=== PATIENT | female | born 1950 | race Caucasian/White ===

== ENCOUNTER → 2016-08-10 | Outpatient (CLI) | payer MEDICARE ==
[~2016-08-10] MED LIST: ASPIRIN81 M1 PO; BACTRIM DS TABL1 TA2 PO; BAYER CHEWABLE81 MG PO; CIPRO PO; CITALOPRAM HBR40 M1 PO; COREG12.5 MG PO; COREG6.25 MG PO; COZAAR25 MG PO; DIOVAN80 M1 PO; GLIPIZIDE10 MG PO; HYDRALAZINE HCL25 MG PO; IMDUR-ER30 M1 PO; IMDUR-ER30 M2 PO; IMDUR-ER60 MG PO; K-DUR20 ME1 PO; KEFLEX500 M1 PO; LASIX PO; LIPITOR20 MG PO; LORTAB 5-325 M1 EACH PO; METFORMIN HCL500 M1 PO; METFORMIN PO; MYCOLOG II CREA15 GM TOP; NITROFURANTOIN100 M3 PO; OMEPRAZOLE20 M2 PO; PAROXETINE HCL20 M1 PO; PERCOCET 5-3251 TAB PO; POTASSIUM CHLO10 ME1 PO; SILVADENE TOP; ST. JOSEPH ASPI81 M2 PO; TYLENOL #3 PO; VICODIN 5/1 TAB 5/50 PO; XARELTO10 MG PO
--- NOTE | ~2016-08-10 | MY11 ---
[facility] A Service [facility] RADIOLOGY TEXT RESULTS PATIENT: ANDREW MONTOYA LOCATION: [facility] : 48 UNIT #: [id number] AGE: [address]: Pavel Anthony MD SEX: F ORDER DR: [id number] [address] [address] [id number] O MR#: [id number] Acc #: [id number] NAME: ANDREW MONTOYA : 1950 SEX: F STUDY DATE/TIME: 08/10/2016 8:46 UNIT: [facility] ROOM: STUDY DESCRIPTION: MY Mammogram Screening Dig Jason Attending Physician: Pavel Anthony M.D. Referring Physician: Pavel Anthony M.D. Ordering Physician: Pavel Anthony M.D. Primary Care Physician: Pavel Anthony M.D. MEDICAL IMAGING REPORT This report is preliminary unless electronic signature is present. EXAM Bilateral digital screening mammogram with CAD HISTORY Routine screening. No current complaints. No family history of breast cancer. COMPARISON 08/20/2015, 08/07/2015, 06/14/2015 FINDINGS MLO and CC digital views of each breast were obtained and reviewed with an FDA-approved CAD device. Right sided pacemaker is present. There are scattered fibroglandular densities present. The multiple calcifications within the right axilla are stable from the prior study. They are confined to about a 1.0 cm area and only seen on the MLO view. They are shown to be intradermal on the prior workup. IMPRESSION No change. No evidence of malignancy. Patients over the age of 40 are entered into a reminder system with target due date for the next mammogram. A result letter will also be sent to the patient. BIRADS: 2 Benign Finding Dictated by... Boris Izaguirre M.D. THIS IS AN ELECTRONICALLY VERIFIED REPORT Boris Izaguirre M.D. at 08/11/2016 7:13 AM [facility] A Service of [facility] RADIOLOGY TEXT RESULTS PATIENT: ANDREW MONTOYA LOCATION: [facility] #: [id number] : 46 UNIT #: [id number] AGE: [address]: Pavel Anthony MD SEX: F ORDER DR: JAMIA/marisela TD: 08/10/2016 17:59 JOB #: [id number] MEDICAL IMAGING REPORT
== END | disposition home or self-care (01) ==
LOC: SMAM 08:15
DX: Z12.31 Encounter for screening mammogram for malignant neoplasm of breast (principal)
CPT/HCPCS: G0202

== ENCOUNTER 2016-10-11 13:34 | Inpatient (IN) | payer MEDICARE, OTHER ==
--- NOTE | ~2016-10-11 | CR151 ---
[facility] A Service of [facility] RADIOLOGY TEXT RESULTS PATIENT: ANDREW MONTOYA LOCATION: [place] [address]- : 46 UNIT #: [id number] AGE: [address]: Laverne Desir MD SEX: F ORDER DR: [id number] [facility] [address] [facility]. [place], [place] [address] [id number] I MR#: [id number] Acc #: [id number] NAME: ANDREW MONTOYA : 1950 SEX: F STUDY DATE/TIME: 10/12/2016 17:35 UNIT: [facility] ROOM: [facility] STUDY DESCRIPTION: CR Hip Min 2 Views Rt Attending Physician: Laverne Desir M.D. Ordering Physician: Ariel Moses M.D. Primary Care Physician: Pavel Anthony M.D. MEDICAL IMAGING REPORT This report is preliminary unless electronic signature is present EXAM Right hip intraoperative spot films 8 views HISTORY Right hip internal fixation. FINDINGS 8 fluoroscopic intraoperative spot films of the right hip demonstrate sequential placement of locking intramedullary landry and compression screw fixation across intertrochanteric fracture of the right hip. The fixation hardware appears in satisfactory position and the hip alignment appears satisfactory although bone detail is limited. Dictated by... Garrett Kidd M.D. THIS IS AN ELECTRONICALLY VERIFIED REPORT Garrett Kidd M.D. at 10/13/2016 5:14 PM DFL/rnr TD: 10/13/2016 01:11 JOB #: [id number] MEDICAL IMAGING REPORT Page 1 of 1 COPY
--- NOTE | ~2016-10-11 | EKG ---
PATIENT: ANDREW MONTOYA UNIT #: [id number] Ventricular Rate: 59 BPM Atrial Rate: 59 BPM P-R Interval: 150 ms QRS Duration: 84 ms Q-T Interval: 468 ms QTC Calculation(Bezet): 463 ms P [place]: 35 degrees Calculated R [place]: 2 degrees Calculated T [place]: 154 degrees Diagnosis Line: Sinus bradycardia with occasional Premature Diagnosis Line: ventricular complexes Diagnosis Line: Moderate voltage criteria for LVH, may be normal Diagnosis Line: variant Diagnosis Line: Marked ST abnormality, possible lateral Diagnosis Line: subendocardial injury Diagnosis Line: Abnormal ECG Diagnosis Line: When compared with ECG of 11-OCT-2016 17:00, Diagnosis Line: (unconfirmed) Diagnosis Line: Premature supraventricular complexes are no longer Diagnosis Line: Present Diagnosis Line: Confirmed by STONE TERRY MD ([id number]) on Diagnosis Line: 10/12/2016 11:28:58 PM INTERPRETING MD: SAE
--- NOTE | ~2016-10-11 | HP ---
Unit #: [id number] #: [id number] Patient: ANDREW MONTOYA [id number] [address] [id number] MR#: [id number] NAME: ANDREW MONTOYA ROOM: Age: 66 Sex: F Admission Date: 10/11/2016 : 1950 Attending Physician: Master Quezada M.D. Primary Care Physician: Pavel Anthony M.D. HISTORY AND PHYSICAL CHIEF COMPLAINT Fall, right hip pain. HISTORY OF PRESENT ILLNESS The patient is a 66-year-old female with past medical history of hypertension, hyperlipidemia, coronary artery disease, possibly CHF, uterine cancer, depression, COPD, diabetes, who presented to the emergency department for evaluation of the above. The patient states that she was in her usual state of health until the day of admission when she fell. She states that she was in her garden and tripped over an edging stone. She fell, landing on her right hip. She experienced immediate pain and was unable to get up. She was brought to the emergency department for further evaluation. In the emergency department right hip x-ray showed an intertrochanteric fracture involving the right hip. She is being admitted to [facility] for evaluation and further treatment. PAST MEDICAL HISTORY 1. Hospitalized at [facility] within the past year (no records). 2. Coronary artery disease, status post coronary artery bypass grafting, followed by Dr. Gottlieb. 3. Possible CHF. The patient denies a history of CHF; however, she has had an AICD placed and is on Lasix. There is no echocardiogram in [facility]. 4. Hypertension. 5. Hyperlipidemia. 6. Uterine cancer, status post hysterectomy. 7. Depression. 8. COPD with continued tobacco abuse, not on home oxygen and not followed by a propellant charge zone assembler. 9. Diabetes. 10. Depression. PAST SURGICAL HISTORY 1. Coronary artery bypass grafting. 2. Pacemaker/defibrillator placement. 3. Tubal . 4. Hysterectomy. 5. Colonoscopy December 02, 2012 showed tubular adenoma and lymphocytic colitis. Unit #: [id number] #: [id number] Patient: ANDREW MONTOYA SOCIAL HISTORY The patient smokes a pack of cigarettes daily. There is no alcohol use. She lives in a senior apartment. She typically walks without assistance. Her code status is a Full Code. FAMILY HISTORY Family history is notable for her mother having diabetes; her dad had coronary artery disease. ALLERGIES Indocin, penicillin, sulfa. HOME MEDICATIONS Losartan 50 mg one-half tablet daily. 1. Aspirin 81 mg daily. 2. Potassium 10 mEq daily. 3. Carvedilol 12.5 mg b.i.d. 4. Lipitor 20 mg daily. 5. Isosorbide 30 mg t.i.d. 6. Citalopram 20 mg daily. 7. Lasix 40 mg daily. 8. Metformin 1000 mg b.i.d. REVIEW OF SYSTEMS A complete review of systems is negative except as indicated in the HPI. The patient denies a history of sleep apnea. She states that she has been taking her medications as prescribed. She denies ever having any problems with anesthesia. The patient states that her blood sugars are typically around 140. DIAGNOSTIC STUDIES IMAGING: Right hip x-ray shows an intertrochanteric fracture. LABORATORY: Complete blood count notable for white blood cell count of 11.6. INR is 1. PHYSICAL EXAMINATION VITAL SIGNS: Temperature is 98.4. Pulse 68. Respirations 17. Blood pressure 151/66. Oxygen saturation is 97% on room air. GENERAL: The patient is a female who is awake and alert, in no acute distress. HEENT: The head is atraumatic. Mucous membranes are moist. NECK: Neck is supple. Trachea is midline. CARDIOVASCULAR: Regular rate and rhythm. LUNGS: Lungs are clear to auscultation bilaterally with no increased work of breathing. ABDOMEN: Abdomen is soft, nontender, with bowel sounds present in all four quadrants. EXTREMITIES: The right hip is tender to palpation. There is no pedal edema. There is decreased range of motion involving the right hip secondary to pain. NEUROLOGIC: The patient is awake and alert. She is oriented x3. She follows commands. PSYCHIATRIC: Mood and affect are normal. The patient is cooperative. SKIN: Skin of examined areas is warm and dry. ASSESSMENT Unit #: [id number] #: [id number] Patient: ANDREW MONTOYA The patient is a 66-year-old female with: 1. Right hip fracture. The patient's Revised Wharton Cardiac Risk Index is consistent with at least a 1% rate of cardiac , nonfatal myocardial infarction, nonfatal cardiac arrest based on the history of ischemic heart disease. The patient may have heart failure as well, increasing her risk. She also is at increased risk due to chronic obstructive pulmonary disease with continued tobacco abuse. 2. Status post fall. 3. Hypertension. 4. Hyperlipidemia. 5. Coronary artery disease, status post coronary artery bypass grafting. 6. Possible congestive heart failure. There is no echocardiogram in [facility]. 7. Uterine cancer, status post hysterectomy. 8. Depression. 9. Chronic obstructive pulmonary disease with continued tobacco abuse. 10. Diabetes. PLAN 1. Admit to [facility]. 2. Healthy heart consistent carb diet. 3. N.p.o. after midnight for surgical intervention. 4. Check labs including a comprehensive metabolic panel. 5. Check urinalysis. 6. EKG and chest x-ray as part of preoperative evaluation. 7. Consult Dr. Christie regarding hip fracture. 8. Consult Dr. Montoya for cardiac clearance. 9. Bedrest. 10. Fall precautions. 11. P.r.n. Dilaudid. 12. P.r.n. Zofran. 13. Hemoglobin A1C. 14. Low dose sliding scale insulin with Accu-Cheks. 15. Repeat labs in the morning. 16. Regarding code status, the patient is a Full Code. Dictated by Shivani Brewer/marco antonio TD: 10/11/2016 16:47 JOB #: [id number] Unit #: [id number] #: [id number] Patient: ANDREW MONTOYA HISTORY AND PHYSICAL Page 1 of 1 X Selina Blum MD HISTORY AND PHYSICAL
--- NOTE | ~2016-10-11 | EKG ---
PATIENT: ANDREW MONTOYA UNIT #: [id number] Ventricular Rate: 67 BPM Atrial Rate: 67 BPM P-R Interval: 134 ms QRS Duration: 76 ms Q-T Interval: 450 ms QTC Calculation(Bezet): 475 ms P [place]: -14 degrees Calculated R [place]: 12 degrees Calculated T [place]: 163 degrees Diagnosis Line: Sinus rhythm with Premature supraventricular Diagnosis Line: complexes and with occasional Premature Diagnosis Line: ventricular complexes Diagnosis Line: ST and T wave abnormality, consider anterolateral Diagnosis Line: ischemia Diagnosis Line: Abnormal ECG Diagnosis Line: No previous ECGs available Diagnosis Line: Confirmed by STONE TERRY MD ([id number]) on Diagnosis Line: 10/12/2016 11:27:18 PM INTERPRETING MD: SAE
--- NOTE | ~2016-10-11 | CR72 ---
[facility] A Service of [facility] RADIOLOGY TEXT RESULTS PATIENT: ANDREW MONTOYA LOCATION: [place] [address] : [birth year] UNIT #: [id number] AGE: [address]: Laverne Desir MD SEX: F ORDER DR: [id number] [facility] [address] [facility]. [place], [place] [address] [id number] I MR#: [id number] Acc #: [id number] NAME: ANDREW MONTOYA : 1950 SEX: F STUDY DATE/TIME: 10/11/2016 20:15 UNIT: [facility] ROOM: [facility] STUDY DESCRIPTION: CR Chest Single View Portable Attending Physician: Laverne Desir M.D. Ordering Physician: Selina Blum M.D. Primary Care Physician: Pavel Anthony M.D. MEDICAL IMAGING REPORT This report is preliminary unless electronic signature is present EXAM Portable chest INDICATION Preoperative evaluation. PROCEDURE Frontal view chest COMPARISON 01/01/2015 FINDINGS Heart size not significantly changed. Previous CABG. No dense consolidation, pleural fluid or pneumothorax. There is a dual lead pacer in place. IMPRESSION No active process. No significant change from 01/01/2015. Dictated by... Ricky Valiente M.D. THIS IS AN ELECTRONICALLY VERIFIED REPORT Ricky Valiente M.D. at 10/15/2016 7:05 AM Mal[facility] TD: 10/12/2016 08:33 JOB #: [id number] MEDICAL IMAGING REPORT Page 1 of 1 COPY
--- NOTE | ~2016-10-11 | CO ---
Unit #: [id number] #: [id number] Patient: ANDREW MONTOYA [id number] [address] [place], [place] [address] [id number] I MR#: [id number] NAME: ANDREW MONTOYA ROOM: 455 Age: 66 Sex: F Admission Date: 10/11/2016 : 1950 Attending Physician: Laverne Desir M.D. Primary Care Physician: Pavel Anthony M.D. Consultation Date: 10/12/2016 CONSULTATION REPORT CHIEF COMPLAINT Right hip fracture. HISTORY OF PRESENT ILLNESS Ms. Montoya is a 66-year-old female, who sustained an injury to her right hip when she tripped and fell over a stone edge in her garden bed around her apartment. She fell landing on the right lower extremity. She was subsequently unable to stand or bear weight. She was brought by EMS to the emergency department. Plain film radiographs demonstrated a right hip fracture. Orthopedic consultation was requested. She was examined supine in her hospital bed, complaining of pain in the right hip with any attempted range of motion. This was partially relieved with IV narcotic pain medication. PAST MEDICAL HISTORY Hypertension, hyperlipidemia, coronary artery disease, uterine cancer, depression, COPD. PAST SURGICAL HISTORY Coronary artery bypass grafting, pacemaker/defibrillator placement, hysterectomy, colonoscopy. MEDICATIONS Home medications include losartan, aspirin, potassium, carvedilol, Lipitor, isosorbide, citalopram, Lasix, metformin. ALLERGIES Indocin, penicillin, sulfa. SOCIAL HISTORY The patient smokes one pack of cigarettes daily. She has no alcohol use. She lives in an apartment facility in the ground floor. She has a Rollator, cane and walker. She uses these at times, was not using them when she fell. She lives independently. FAMILY HISTORY Noncontributory to current illness. REVIEW OF SYSTEMS Ten systems are reviewed and negative except as stated. PHYSICAL EXAMINATION GENERAL APPEARANCE: Obese appearing 66-year-old female, in some Unit #: [id number] #: [id number] Patient: ANDREW MONTOYA discomfort, but no acute distress. PSYCHIATRIC: Awake, alert, and oriented to person, place, time, and situation. CARDIAC: Regular rate and rhythm. PULMONARY: No increased work of breathing. Symmetric chest rise. ABDOMEN: Nondistended. NEUROLOGIC: Intact motor function L4 through S1 about the bilateral lower extremities. SKIN: There are no rashes, ulcers or other lesions noted. No evidence of open injury over the right hip. No contusion. VASCULAR: Her foot is warm and well perfused. LYMPHATICS: No lymphedema or lymphadenopathy. MUSCULOSKELETAL: The right leg is shortened and externally rotated. Further range of motion is deferred. DIAGNOSTIC STUDIES IMAGING STUDIES: Plain film radiographs reviewed of the right hip would demonstrate a right basicervical versus intertrochanteric femoral neck fracture. LABORATORY RESULTS: hemoglobin is 12.1 with a white blood cell count of 8.9. INR is 1.0. Glucose is 232, total protein is 7.2 with an albumin of 3.7. IMPRESSION A 66-year-old female with obesity with a right basicervical femoral neck fracture versus intertrochanteric hip fracture. Her fracture pattern is amenable to fixation with an intramedullary nail. We discussed the nature of the surgery as well as risks, benefits, and alternatives. We have discussed expected recovery. At this point, she elected to proceed with surgery later today with the right hip intramedullary nailing. We will plan for postoperative transfer to subacute rehab facility. Dictated by... Shivani Hathaway/zuri TD: 10/13/2016 06:38 JOB #: [id number] CONSULTATION REPORT Page 1 of 1 X Ariel Moses MD X CONSULTATION REPORT
--- NOTE | ~2016-10-11 | CO ---
Unit #: [id number] #: [id number] Patient: ANDREW MONTOYA [id number] [address] [place], [place] [address] [id number] MR#: [id number] NAME: ANDREW MONTOYA. ROOM: 455 Age: 66 Sex: F Admission Date: 10/11/2016 : 1950 Attending Physician: Laverne Desir M.D. Primary Care Physician: Pavel Anthony M.D. Consultation Date: 10/12/2016 CONSULTATION REPORT REASON FOR CONSULTATION Preop clearance. HISTORY OF PRESENT ILLNESS This is a 66-year-old white female, who is a patient of Dr. Gottlieb and Dr. Aceves, and she was last seen by them approximately six months ago. She has a prior medical history of a non-STEMI in 2006, status post CABG x5, and an AICD implantation in 2006. Reports she recently had a cardiac catheterization about three months ago which showed 3 out of 5 bypass grafts occluded and it was decided to proceed with medical management and her medications were adjusted. She denies chest pain, palpitations, or chest pressure. Reports occasional shortness of breath with walking more than half a block. Her records are currently unavailable for review. She also has a prior history of hypertension, hyperlipidemia, type 2 diabetes mellitus, tobacco abuse, COPD, GERD, degenerative disc disease, and a history of uterine cancer. She was working in her garden when she tripped and fell. She experienced severe pain and was unable to get up so she was brought to the ER. Right hip x-ray in the ER showed an intertrochanteric right hip fracture. We were asked to see her to evaluate for preop clearance. PAST MEDICAL HISTORY 1. Non-STEMI, status post CABG x5 in 2006. 2. Status post AICD in 2006. 3. Hypertension. 4. Hyperlipidemia. 5. Diabetes mellitus type 2. 6. Tobacco abuse, one pack per day x25 years. 7. COPD. 8. GERD. 9. Degenerative disc disease. 10. History of uterine cancer, status post hysterectomy. 11. Anxiety and depression. PAST SURGICAL HISTORY 1. Coronary artery bypass grafting x5 in 2006. 2. AICD placement in 2006. 3. Hysterectomy. 4. Colonoscopy in 2012 which showed tubular adenoma and lymphocytic colitis. SOCIAL HISTORY She lives in a Detention apartment complex. Walks without assistance Unit #: [id number] #: [id number] Patient: ANDREW MONTOYA or assistive devices. States she has fallen in the past with her most recent prior fall about a year ago. Smokes less than one pack per day greater than 25 years. States she has tried to quit smoking several times in the past. Denies alcohol or illicit drug use. FAMILY HISTORY Denies a family history of premature coronary artery disease. ALLERGIES Indocin, penicillin, sulfa. HOME MEDICATIONS 1. Aspirin 81 mg p.o. daily. 2. Cozaar 25 mg p.o. daily. 3. Potassium chloride 10 mEq p.o. daily. 4. Carvedilol 12.5 mg p.o. twice daily. 5. Lipitor 20 mg p.o. daily. 6. Imdur ER 30 mg p.o. three times daily. 7. Citalopram 20 mg p.o. daily. 8. Lasix 40 mg p.o. daily as needed. 9. Glucophage 1000 mg p.o. twice daily. REVIEW OF SYSTEMS A ten point review of systems is positive for nausea and occasional shortness of breath. Otherwise, negative except for as stated in HPI. PHYSICAL EXAMINATION GENERAL: This is a pleasant, 66-year-old female. She is resting in bed in no acute distress. VITAL SIGNS: Temperature 97.8, heart rate 59, respiratory rate 14, 96% O2 sat on room air, blood pressure 151/75, 67 inches, 85.7 kilograms. HEENT: Head is atraumatic and normocephalic. Pupils are equal and round. Mucous membranes are moist. NECK: Supple. Trachea is midline. Negative for JVD. LUNGS: Clear and diminished in bases. Respiratory pattern is nonlabored. CARDIOVASCULAR: S1, S2. Regular rate and rhythm. Negative for murmurs, rubs or gallops. ABDOMEN: Soft, nontender, nondistended. EXTREMITIES: Pulses are palpable. No pedal edema. No cyanosis. NEUROLOGIC: Alert and oriented x3. Moves all extremities equally and follows commands without difficulty. DIAGNOSTIC STUDIES LABORATORY: Sodium 131, potassium 4.5, chloride 98, BUN 22, creatinine 0.7, glucose 232, magnesium 1.5. Hemoglobin A1c 8.2. Hemoglobin 12.1, hematocrit 36.8, white blood cell count 8.9, platelets 201. Urine culture is positive for Gram-negative rods greater than 100,000. IMAGING: Right hip x-ray showed intertrochanteric fracture. Chest x-ray showed no active process and no cardiomegaly. CARDIOVASCULAR: EKG was abnormal. Sinus bradycardia with PVCs and Unit #: [id number] #: [id number] Patient: ANDREW MONTOYA diffuse T wave depression. ASSESSMENT 1. Right hip fracture. 2. Urinary tract infection, Gram-negative landry. 3. Coronary artery disease, status post coronary artery bypass graft x5 in 2006. 4. Ischemic cardiomyopathy, status post automatic implantable cardioverter defibrillator in 2006. 5. Hypertension. 6. Hyperlipidemia. 7. Diabetes mellitus type 2. 8. Tobacco abuse. PLAN 1. Obtain medical records. 2. Replace magnesium. 3. Zofran p.r.n. for nausea. 4. Lipid profile, CBC, BMP in a.m. 5. Echocardiogram. She was encouraged to quit smoking. It is okay to undergo surgery at low to moderate but acceptable risk. Thank you for asking us to see this patient. We appreciate the consult. Dictated by... Simin Heath APRN for Shivani Harris TD: 10/13/2016 07:31 JOB #: [id number] CONSULTATION REPORT Page 1 of 1 X X CONSULTATION REPORT
--- NOTE | ~2016-10-11 | OR ---
Unit #: [id number] #: [id number] Patient: NADREW MONTOYA [id number] [address] [place], [place] [address] [id number] I MR#: [id number] NAME: ANDREW MONTOYA ROOM: 455 Date of Procedure: 10/12/2016 Admission Date: 10/11/2016 Surgeon: Ariel Moses M.D. : 1950 Attending Physician: Laverne Desir M.D. Primary Care Physician: Pavel Anthony M.D. OPERATIVE REPORT PREOPERATIVE DIAGNOSIS Right intertrochanteric hip fracture. POSTOPERATIVE DIAGNOSIS Right intertrochanteric hip fracture. PROCEDURE PERFORMED Right hip intramedullary nailing. IMPLANTS [employer] cephalomedullary nail, size 10.0 x 215 mm with a 105-mm lag screw and a 32.5-mm distal interlocking screw and a 125-degree neck-shaft angle. ANESTHESIA General. ESTIMATED BLOOD LOSS 25 mL. COMPLICATIONS None apparent. INDICATIONS FOR PROCEDURE Ms. Montoya is a 66-year-old female with a right intertrochanteric hip fracture. We have discussed surgical intervention and she elects to proceed. DESCRIPTION OF PROCEDURE The patient was identified in the preoperative holding area. The operative site was marked. Preoperative antibiotics were already administered with Levaquin. No additional preoperative antibiotics were indicated. The patient was brought to the operating room by anesthesia personnel. A general anesthetic was induced on her hospital bed. She was then transferred to the [place] table. The legs were placed in a scissored position with both feet down in traction boots. The hip fracture was then reduced on the operative table. Once we had this in the anatomic reduced position, this was confirmed under C-arm imaging. We then prepped and draped the right lower extremity in a sterile fashion with a shower curtain drape. The C-arm imaging intensifier was brought in over the operative field and the greater trochanter marked out. An incision was made approximately 3 fingerbreadths proximal to the greater trochanter. A Unit #: [id number] #: [id number] Patient: ANDREW MONTOYA starting awl was advanced down to the subcutaneous tissues down to the tip of the trochanter itself. This was advanced into proximal femur and positioning confirmed on AP and lateral images. A reaming guide landry was then passed down to the distal femur. The proximal opening reamer was used to open the proximal femoral canal. The nail was then inserted by hand and seated to the desired depth. The reaming landry was removed. The drill sleeves for the lag screw were placed percutaneously through a stab incision down to the lateral femoral cortex. A guide pin was drilled up the femoral neck into the femoral head with positioning confirmed on orthogonal images. This was then measured, reamed, and a 105-mm screw inserted. The drill sleeves for the distal interlock were then attached to the targeting arm. These were advanced through a percutaneous incision down to the lateral femoral cortex. The distal interlocking screw was drilled, measured and inserted, which was a 32.5-mm screw. The nail insertion handle was disassembled. Final images were obtained and demonstrated an anatomic reduction with satisfactory placement of the hardware. The wounds were then irrigated with sterile saline. They were then closed with 2-0 Vicryl and keila in the skin. Sterile dressings were applied. DISPOSITION Stable to the recovery room. She is weightbearing as tolerated in the affected extremity, and may be out of bed and up with physical therapy tomorrow. Dictated by... Shivani Hathaway/zuri TD: 10/13/2016 06:17 JOB #: [id number] OPERATIVE REPORT Page 1 of 1 X Ariel Moses MD X PROCEDURE OPERATIVE NOTE
--- NOTE | ~2016-10-11 | DS ---
Unit #: [id number] #: [id number] Patient: ANDREW MONTOYA [id number] [address] [address] [id number] I MR#: [id number] NAME: ANDREW MONTOYA. ROOM: 455 Age: 66 Sex: F Admission Date: 10/11/2016 : 1950 Discharge Date: Attending Physician: Laverne Desir M.D. Primary Care Physician: Pavel Anthony M.D. DISCHARGE SUMMARY DISCHARGE DIAGNOSES 1. Right hip fracture. 2. Status post fall. 3. Klebsiella pneumonia. 4. Urinary tract infection. 5. Diabetes mellitus type 2. 6. Hypertension. 7. Hyperlipidemia. 8. Hypomagnesemia. 9. Coronary artery disease, status post bypass in the past. 10. Possible chronic diastolic heart failure. 11. Status post automated implantable cardioverter defibrillator. 12. Depression. 13. Chronic obstructive pulmonary disease. 14. Uterine cancer, status post hysterectomy. 15. Smoking. 16. Depression. CONSULTATION Dr. Ariel Moses. PROCEDURE Patient had right hip intramedullary nailing. DIAGNOSTIC STUDIES LABORATORY: Glucose 224, sodium 133, potassium 4, creatinine 0.7. Urine culture is growing Klebsiella pneumonia. WBC 10.2, hemoglobin 11.2, platelets 151,000. ALLERGIES Penicillin, sulfa, Indomethacin. DISCHARGE MEDICATIONS 1. Celexa 20 p.o. daily. 2. Metformin 1000 p.o. b.i.d. 3. Coreg 12.5 p.o. b.i.d. 4. Lasix 40 p.o. daily. Start on October 18, 2016. 5. Lipitor 20 p.o. daily. 6. Hydralazine 25 p.o. b.i.d. 7. Cozaar 25 daily. 8. Aspirin 81 restart after Xarelto has been done. 9. Potassium 10 mEq p.o. daily. Start on October 18, 2016. 10. Nitrofurantoin 100 mg p.o. b.i.d. 11. Imdur ER 60 p.o. b.i.d. Unit #: [id number] #: [id number] Patient: MONTOYA,ANDREW L 12. Xarelto 10 mg p.o. daily for 14 days. 13. Lortab 5 mg q.6 p.r.n. pain. HOSPITALIZATION COURSE A 66 year old admitted after fall. She has right hip pain with right side intertrochanteric hip fracture. Patient is seen by Dr. Ariel Moses. The patient had right hip intramedullary nailing. Currently, patient is working with physical therapy. Pain is controlled. According to the case work aide, she cannot go to rehab because of insurance issues. The patient is being discharged home with home health. Urinary tract infection with Klebsiella: Patient will be discharged on nitrofurantoin. She received Levaquin during the hospitalization course. Diabetes mellitus type 2: Uncontrolled. Hypomagnesemia: Replace with magnesium. Hypertension: Uncontrolled. I increased her Imdur. DISPOSITION Patient will be discharged home with home health. FOLLOWUP 1. Follow with family physician in one week time. 2. Follow with Dr. Ariel Moses in two weeks' time. 3. Dressing changes as per orthopedics. Dictated by... Shivani Raphael/vannesa TD: 10/14/2016 16:00 JOB #: [id number] DISCHARGE SUMMARY Page 1 of 1 X Laverne Desir MD X DISCHARGE SUMMARY
--- NOTE | ~2016-10-11 | CR151 ---
[facility] A Service of [facility] RADIOLOGY TEXT RESULTS PATIENT: ANDREW MONTOYA LOCATION: [place] [address] : [birth year] UNIT #: [id number] AGE: [address]: Selina Blum MD SEX: F ORDER DR: [id number] [facility] [address] [place], [place] [address] [id number] I MR#: [id number] Acc #: [id number] NAME: ANDREW MONTOYA : 1950 SEX: F STUDY DATE/TIME: 10/11/2016 15:19 UNIT: [facility] ROOM: [facility] STUDY DESCRIPTION: CR Hip Min 2 Views Rt Attending Physician: Selina Blum M.D. Ordering Physician: Master Quezada M.D. Primary Care Physician: Pavel Anthony M.D. MEDICAL IMAGING REPORT This report is preliminary unless electronic signature is present EXAM Right hip series INDICATION Right hip pain today. PROCEDURE Frontal view of the pelvis and 2 cross-table lateral views of the right hip. COMPARISON None. FINDINGS There is an intertrochanteric fracture of the right hip. No dislocation. The fracture is not well characterized on the cross-table lateral views. IMPRESSION Intertrochanteric fracture of the right hip. Dictated by... Ricky Valiente M.D. THIS IS AN ELECTRONICALLY VERIFIED REPORT Ricky Valiente M.D. at 10/12/2016 7:39 AM EED/elli TD: 10/11/2016 22:21 JOB #: [id number] MEDICAL IMAGING REPORT [facility] A Service [facility] RADIOLOGY TEXT RESULTS PATIENT: ANDREW MONTOYA LOCATION: [place] [address] : [birth year] UNIT #: [id number] AGE: [address]: Selina Blum MD SEX: F ORDER DR: Page 1 of 1 COPY
[~2016-10-11 13:34] MED LIST changes: -BAYER CHEWABLE81 MG PO; -CITALOPRAM HBR40 M1 PO; -COREG12.5 MG PO; -COZAAR25 MG PO; -HYDRALAZINE HCL25 MG PO; -IMDUR-ER30 M1 PO; -IMDUR-ER60 MG PO; -LORTAB 5-325 M1 EACH PO; -METFORMIN PO; -NITROFURANTOIN100 M3 PO; -POTASSIUM CHLO10 ME1 PO; -XARELTO10 MG PO
[2016-10-11 16:01] LABS: BASOPHIL# 0.1 X10e3 (0-0.3); BASOPHIL% 0.5 % (0-2.5); DIFF IND NO; EOSINOPHIL# 0.1 X10e3 (0-0.7); EOSINOPHIL% 1.3 % (0.0-7.0); HEMATOCRIT 40.1 % (35.0-45.0); HEMOGLOBIN 13.3 gm/dL (12.0-16.0); LYMPHOCYTE# 2.1 X10e3 (1.0-3.5); LYMPHOCYTE% 17.8 % (17.0-45.0); MEAN CELL VOLUME 91.6 FL (83-96); MEAN CORPUSCULAR HEMOGLOBIN 30.4 PG (28-34); MEAN CORPUSCULAR HGB CONC 33.2 g/dL (30-36); MEAN PLATELET VOLUME 9.2 FL (6.5-11.5); MONOCYTE# 0.6 X10e3 (0-1.0); NEUTROPHIL# 8.8 X10e3 (1.5-7.1); NEUTROPHIL% 75.4 % (40-75); PLATELET COUNT 211 X10e3 (140-420); RED BLOOD COUNT 4.38 X10e (3.90-5.30); RED CELL DISTRIBUTION WIDTH 14.2 % (11.0-15.5); WHITE BLOOD COUNT 11.6 X10e3 (4.0-10.5)
[2016-10-11 16:18] LABS: PARTIAL THROMBOPLASTIN TIME 24.5 SECONDS (23.5-31.3); PROTHROMBIN TIME (PATIENT) 10.3 SECONDS (9.6-11.5)
[2016-10-11 16:26] LABS: BUN/CREATININE RATIO 36.66; CALCIUM SERUM 9.5 mg/dL (8.4-10.2); CREATININE SERUM 0.6 mg/dL (0.6-1.4); GLOM FILT RATE Estimated 93.7 mL/min (>60); POTASSIUM 4.2 mmol/L (3.5-5.1)
[2016-10-11] MEDS ORDERED: COZAAR25 MG PO (16:43)
[2016-10-11] MEDS ORDERED: BAYER CHEWABLE81 MG PO (16:43)
[2016-10-11] MEDS ORDERED: LIPITOR20 MG PO (16:44)
[2016-10-11] MEDS ORDERED: POTASSIUM CHLO10 ME1 PO (16:44)
[2016-10-11] MEDS ORDERED: COREG12.5 MG PO (16:44)
[2016-10-11] MEDS ORDERED: IMDUR-ER30 M1 PO (16:45)
[2016-10-11] MEDS ORDERED: CITALOPRAM HBR40 M1 PO (16:45)
[2016-10-11] MEDS ORDERED: LASIX PO (16:45)
[2016-10-11] MEDS ORDERED: METFORMIN PO (16:46)
[2016-10-11 18:30] LABS: URINE SOURCE CLEAN CATCH
[2016-10-11 18:35] LABS: URINE APPEARANCE CLOUDY; URINE BILIRUBIN NEG (NEG); URINE BLOOD 1+ (NEG); URINE COLOR YELLOW; URINE GLUCOSE NEG (NEG); URINE KETONE NEG (NEG); URINE LEUKOCYTE ESTERASE 2+ (NEG); URINE NITRATE NEG (NEG); URINE PH 6.5 (5-8); URINE PROTEIN 1+ (NEG); URINE SPECIFIC GRAVITY 1.015 (1.003-1.035); URINE UROBILINOGEN 0.2 MG/DL (NEG)
[2016-10-11 18:38] LABS: UWBCS1 AUWI 50-100 (0-5)
[2016-10-11 18:51] LABS: CULTURE INDICATED? YES; URINE BACTERIA AUWI 4+ (NEGATIVE); URINE SQUAMOUS EPITHELIAL CELL FEW /[HPF]
[2016-10-12 03:41] LABS: ALBUMIN SERUM 3.7 g/dL (3.5-5.0); BILIRUBIN,TOTAL 0.5 mg/dL (0.2-2.0); BUN/CREATININE RATIO 31.42; CREATININE SERUM 0.7 mg/dL (0.6-1.4); MAGNESIUM 1.5 mg/dL (1.6-3.0); POTASSIUM 4.5 mmol/L (3.5-5.1); PROTEIN TOTAL SERUM 7.2 g/dL (6.0-8.3)
[2016-10-12 05:27] LABS: BASOPHIL% 0.4 % (0-2.5); EOSINOPHIL% 0.2 % (0.0-7.0); HEMATOCRIT 36.8 % (35.0-45.0); HEMOGLOBIN 12.1 gm/dL (12.0-16.0); LYMPHOCYTE# 1.6 X10e3 (1.0-3.5); LYMPHOCYTE% 18.1 % (17.0-45.0); MEAN CELL VOLUME 92.3 FL (83-96); MEAN CORPUSCULAR HEMOGLOBIN 30.5 PG (28-34); MEAN PLATELET VOLUME 9.3 FL (6.5-11.5); MONOCYTE# 0.6 X10e3 (0-1.0); MONOCYTE% 6.4 % (3.0-12.0); NEUTROPHIL# 6.6 X10e3 (1.5-7.1); NEUTROPHIL% 74.9 % (40-75); PLATELET COUNT 201 X10e3 (140-420); RED BLOOD COUNT 3.99 X10e (3.90-5.30); RED CELL DISTRIBUTION WIDTH 14.3 % (11.0-15.5); WHITE BLOOD COUNT 8.9 X10e3 (4.0-10.5)
[2016-10-12 05:30] LABS: DIFF IND NO
[2016-10-13 03:46] LABS: BASOPHIL% 0.2 % (0-2.5); EOSINOPHIL% 0.1 % (0.0-7.0); HEMATOCRIT 33.8 % (35.0-45.0); HEMOGLOBIN 11.2 gm/dL (12.0-16.0); LYMPHOCYTE% 9.5 % (17.0-45.0); MEAN CELL VOLUME 93.2 FL (83-96); MEAN CORPUSCULAR HEMOGLOBIN 30.9 PG (28-34); MEAN CORPUSCULAR HGB CONC 33.2 g/dL (30-36); MEAN PLATELET VOLUME 9.6 FL (6.5-11.5); MONOCYTE# 0.6 X10e3 (0-1.0); MONOCYTE% 6.2 % (3.0-12.0); NEUTROPHIL# 8.5 X10e3 (1.5-7.1); PLATELET COUNT 151 X10e3 (140-420); RED BLOOD COUNT 3.63 X10e (3.90-5.30); RED CELL DISTRIBUTION WIDTH 14.5 % (11.0-15.5); WHITE BLOOD COUNT 10.2 X10e3 (4.0-10.5)
[2016-10-13 03:48] LABS: DIFF IND NO
[2016-10-13 04:04] LABS: BUN/CREATININE RATIO 36.66; CALCIUM SERUM 8.7 mg/dL (8.4-10.2); CREATININE SERUM 0.6 mg/dL (0.6-1.4); GLOM FILT RATE Estimated 93.7 mL/min (>60); MAGNESIUM 1.9 mg/dL (1.6-3.0); POTASSIUM 3.9 mmol/L (3.5-5.1)
[2016-10-13 04:22] LABS: CHOLESTEROL 147 mg/dL (0-200); HDL CHOLESTEROL 51 mg/dL (35-95); LDL CHOLESTEROL 64 mg/dL (-130); LDL/HDL RATIO 1 RATIO (0-4); TRIGLYCERIDES 159 mg/dL (10-160)
[2016-10-14 03:49] LABS: BUN/CREATININE RATIO 48.57; CALCIUM SERUM 8.7 mg/dL (8.4-10.2); CREATININE SERUM 0.7 mg/dL (0.6-1.4)
[2016-10-14] MEDS ORDERED: HYDRALAZINE HCL25 MG PO (16:03)
[2016-10-14] MEDS ORDERED: IMDUR-ER60 MG PO (16:05)
[2016-10-14] MEDS ORDERED: NITROFURANTOIN100 M3 PO (16:05)
[2016-10-14] MEDS ORDERED: XARELTO10 MG PO (16:07)
[2016-10-14] MEDS ORDERED: LORTAB 5-325 M1 EACH PO (16:07)
== END 2016-10-14 20:00 | disposition home health service (06) | DRG 481 ==
LOC: CED 13:34 → C4C 16:35 → CED 19:05 → C4C 10-12 08:12 → C4B 10-12 20:03
PROVIDERS: Emergency Medicine; Family Medicine; Internal Medicine; Orthopaedic Surgery
PROC: B24BYZZ Ultrasonography of Heart with Aorta using Other Contrast (ICD-10-PCS; 2016-10-12)
PROC: 0QS636Z Reposition Right Upper Femur with Intramedullary Internal Fixation Device, Percutaneous Approach (ICD-10-PCS; principal; 2016-10-12 15:00)
DX: S72.141A Displaced intertrochanteric fracture of right femur, initial encounter for closed fracture (principal); E87.1 Hypo-osmolality and hyponatremia; J44.9 Chronic obstructive pulmonary disease, unspecified; I11.0 Hypertensive heart disease with heart failure; I50.32 Chronic diastolic (congestive) heart failure; N39.0 Urinary tract infection, site not specified; E11.65 Type 2 diabetes mellitus with hyperglycemia; E78.5 Hyperlipidemia, unspecified; I25.10 Atherosclerotic heart disease of native coronary artery without angina pectoris; F32.9 Major depressive disorder, single episode, unspecified; W01.0XXA Fall on same level from slipping, tripping and stumbling without subsequent striking against object, initial encounter; F17.210 Nicotine dependence, cigarettes, uncomplicated; Y92.89 Other specified places as the place of occurrence of the external cause; Z95.810 Presence of automatic (implantable) cardiac defibrillator; Z85.42 Personal history of malignant neoplasm of other parts of uterus; Z95.1 Presence of aortocoronary bypass graft; Z90.710 Acquired absence of both cervix and uterus; Z79.82 Long term (current) use of aspirin; Z88.0 Allergy status to penicillin; Z88.2 Allergy status to sulfonamides; E83.42 Hypomagnesemia; A49.8 Other bacterial infections of unspecified site
CPT/HCPCS: 51702; 71010; 73502; 76000; 80048; 80053; 80061; 81003; 82947; 83036; 83735; 85025; 85610; 85730; 87086; 87088; 87186; 93005; 93306; 96374; 96375; 97110; 97116; 97162; 97166; 97530; 97535; 99285; G8978-GP; G8979-GP; G8980-GP; G8987-GO; G8988-GO; G8989-GO; J0360; J1170; J1650; J1815; J1956; J2250; J2270; J2405; J2765; J3010; J3475

== ENCOUNTER → 2016-10-23 | Outpatient (CLI) | payer MEDICARE, OTHER ==
[~2016-10-23] MED LIST changes: +BAYER CHEWABLE81 MG PO; +CITALOPRAM HBR40 M1 PO; +COREG12.5 MG PO; +COZAAR25 MG PO; +HYDRALAZINE HCL25 MG PO; +IMDUR-ER30 M1 PO; +IMDUR-ER60 MG PO; +LORTAB 5-325 M1 EACH PO; +METFORMIN PO; +NITROFURANTOIN100 M3 PO; +POTASSIUM CHLO10 ME1 PO; +XARELTO10 MG PO
--- NOTE | ~2016-10-23 | US84 ---
[id number] [facility]. [facility] [address] [place], [place] [address] [id number] MR#: [id number] Acc #: [id number] NAME: ANDREW MONTOYA : 1950 SEX: F STUDY DATE/TIME: 10/23/2016 13:05 UNIT: [facility] ROOM: STUDY DESCRIPTION: US LE Veins Complete Jason Stdy Attending Physician: Ariel Moses M.D. Referring Physician: Ariel Moses M.D. Ordering Physician: Ariel Moses M.D. Primary Care Physician: Pavel Anthony M.D. MEDICAL IMAGING REPORT This report is preliminary unless electronic signature is present EXAM Bilateral lower extremity venous duplex scan 10/23/2016 HISTORY Bilateral leg pain and swelling. Previous right hip surgery. FINDINGS High-resolution B-mode imaging and color flow Doppler analysis was performed of the deep and superficial veins of the lower extremities bilaterally. All veins are fully compressible with no intraluminal thrombus. Spontaneous and phasic flow is noted in the common femoral, deep femoral, femoral, and popliteal veins bilaterally. Flow is demonstrated in the anterior tibial, posterior tibial, and peroneal veins on both sides. Flow is also present in the great saphenous veins bilaterally. IMPRESSION Normal venous examination of the lower extremities bilaterally. No deep or superficial vein thrombosis in either leg. Dictated by... Joaquin Oscar M.D. THIS IS AN ELECTRONICALLY VERIFIED REPORT Joaquin Oscar M.D. at 11/05/2016 11:45 AM SHIRLEY/bentley TD: 10/23/2016 21:22 JOB #: [id number] MEDICAL IMAGING REPORT Page 1 of 1 COPY
== END | disposition home or self-care (01) ==
LOC: CNIV 12:30
DX: M79.89 Other specified soft tissue disorders (principal)
CPT/HCPCS: 93970